=== PATIENT | male | born 1975 | race African-American/Black ===

== ENCOUNTER 2018-09-25 05:14 | Emergency (ER) | payer OTHER ==
[2018-09-25 07:50] VITALS: BP 131/65
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
== END 2018-09-25 07:20 | disposition home or self-care (01) ==
LOC: ER 05:14
DX: S06.0X0A Concussion without loss of consciousness, initial encounter (principal); R11.0 Nausea; R42 Dizziness and giddiness; H53.8 Other visual disturbances; Y04.2XXA Assault by strike against or bumped into by another person, initial encounter; Y99.0 Civilian activity done for income or pay
CPT/HCPCS: 99283